=== PATIENT | female | born 1965 | race Caucasian/White ===

== ENCOUNTER 2017-03-27 08:04 | Emergency (ER) | payer BC ==
[2017-03-27 08:26] VITALS: BP 134/95
[2017-03-27] MEDS ORDERED: Ondansetron ODT TAB* 4 MG PO ONE (08:28)
--- NOTE | 2017-03-27 08:40 | UC ---
Ear Complaint HPI - HPI Summary HPI Summary: right ear pain x 1 day + dizziness , nausea / vomiting, + nasal congestion, no cough , no abdominal pain , no diarrhea , no urinary sx - History of Current Complaint Chief Complaint: UCEar Stated Complaint: EAR PAIN/NAUSEA Time Seen by Provider: 03/27/17 08:28 Hx Obtained From: Patient Hx Last Menstrual Period: HAD UTERINE ABLATION NO PERIOD SINCE 6 YRS AGO ?: No Onset/Duration: Gradual Onset, Lasting Days - 1, Still Present Severity Initially: Moderate Severity Currently: Moderate Aggravating Factors: Nothing Alleviating Factors: Nothing Associated Signs/Symptoms: Positive: URI Symptoms. Negative: Discharge, Hearing Loss, Foreign Body Sensation, Trauma to Ear, Swelling @ - Allergies/Home Medications Allergies/Adverse Reactions: Allergies Allergy/AdvReac Type Severity Reaction Status Date / Time No Known Allergies Allergy Verified 03/27/17 08:14 Home Medications: Home Medications Linaclotide [Linzess] 1 cap DAILY 03/27/17 [History Confirmed 03/27/17] Polyethylene Glycol 3350* [Miralax*] 1 chiquita DAILY 03/27/17 [History Confirmed 04/07] PMH/Surg Hx/FS Hx/Imm Hx Previously Healthy: Yes - Surgical History Surgical History: Yes Surgery Procedure, Year, and Place: Ablation - Family History Known Family History: Negative: Diabetes - Social History Alcohol Use: Rare Substance Use Type: None Smoking Status (MU): Heavy Every Day Tobacco Smoker Type: Cigarettes Amount Used/How Often: HALF PK PER DAY Length of Time of Smoking/Using Tobacco: 14.5 YRS Have You Smoked in the Last Year: Yes Household Exposure Type: Cigarettes - Immunization History Most Recent Influenza Vaccination: 2016 Most Recent Tetanus Shot: UTD Most Recent Pneumonia Vaccination: N/A Review of Systems Constitutional: Negative Skin: Negative Eyes: Negative ENT: Ear Ache, Nasal Discharge Respiratory: Negative Cardiovascular: Negative Gastrointestinal: Negative Genitourinary: Negative Neurological: Weakness All Other Systems Reviewed And Are Negative: Yes Physical Exam Triage Information Reviewed: Yes Appearance: Well-Appearing, Well-Nourished, Pain Distress Vital Signs: Initial Vital Signs Temp 97.9 F 03/27/17 08:17 Pulse 71 03/27/17 08:17 Resp 20 03/27/17 08:17 BP 134/95 03/27/17 08:17 Pulse Ox 100 03/27/17 08:17 Vital Signs Reviewed: Yes Eyes: Positive: Conjunctiva Clear ENT: Positive: Normal ENT inspection, Hearing grossly normal, Pharynx normal, TMs normal, TM bulging - right ear Neck: Positive: Supple, Nontender, No Lymphadenopathy Respiratory Exam: Normal Respiratory: Positive: Chest non-tender, Lungs clear, Normal breath sounds, No respiratory distress Cardiovascular: Positive: RRR, No Murmur, Pulses Normal Abdomen Description: Positive: Nontender, No Organomegaly, Soft Bowel Sounds: Positive: Present Neurological: Positive: Alert Psychological Exam: Normal Skin Exam: Normal UC Physical Exam Vital Signs On Initial Exam: Initial Vitals Temp Pulse Resp BP Pulse Ox 97.9 F 71 20 134/95 100 03/27/17 08:17 03/27/17 08:17 03/27/17 08:17 03/27/17 08:17 03/27/17 08:17 - Neurological Exam Neurological: Sensory/Motor Intact, Alert, Oriented to Person Place, Time, CN Intact II-III, Reflexes Intact, Normal Gait, Speech Normal Ear Complaint Course/Dx - Differential Dx/Diagnosis Provider Diagnoses: vertigo. right ear pain Discharge - Discharge Plan Condition: Stable Disposition: HOME Prescriptions: Fluticasone NASAL SPRAY 50MCG* [Flonase NASAL SPRAY 50MCG*] 2 spray BOTH NARES DAILY #1 btl Meclizine TAB* [Antivert 12.5 TAB*] 25 mg PO TID PRN #15 tab PRN Reason: Dizziness Patient Education Materials: Earache (ED), Vertigo (ED) Referrals: Tara GREWAL,Sharon [Primary Care Provider] - 5 Days
== END 2017-03-27 09:01 | disposition home or self-care (01) ==
LOC: UCCORT 08:04
DX: R42 Dizziness and giddiness (principal); H92.01 Otalgia, right ear; F17.210 Nicotine dependence, cigarettes, uncomplicated
CPT/HCPCS: 99212; A9270-GY; G0463

== ENCOUNTER 2017-11-19 09:26 | Emergency (ER) | payer BC ==
[2017-11-19 10:29] VITALS: BP 149/97
--- NOTE | 2017-11-19 10:59 | UC ---
Ear Complaint HPI - HPI Summary HPI Summary: 52 yo female with recent URI presents with right otalgia x 3 days dizziness nausea no vomting no f/c no cp or sob no headache no palpitations - History of Current Complaint Chief Complaint: UCEar Stated Complaint: EAR COMPLAINT Time Seen by Provider: 11/19/17 10:51 Hx Obtained From: Patient Hx Last Menstrual Period: ~2005 Onset/Duration: Gradual Onset, Lasting Days Severity Initially: Moderate Severity Currently: Mild Pain Intensity: 3 Pain Scale Used: 0-10 Numeric Associated Signs/Symptoms: Positive: Hearing Loss, URI Symptoms - Allergies/Home Medications Allergies/Adverse Reactions: Allergies Allergy/AdvReac Type Severity Reaction Status Date / Time No Known Allergies Allergy Verified 11/19/17 10:19 PMH/Surg Hx/FS Hx/Imm Hx Previously Healthy: Yes Respiratory History: Asthma Psychological History: Depression - Surgical History Surgical History: Yes Surgery Procedure, Year, and Place: Uterine ablation - Family History Known Family History: Positive: Hypertension Negative: Diabetes - Social History Alcohol Use: Rare Substance Use Type: None Smoking Status (MU): Heavy Every Day Tobacco Smoker Type: Cigarettes Amount Used/How Often: HALF PK PER DAY Length of Time of Smoking/Using Tobacco: 14.5 YRS Have You Smoked in the Last Year: Yes Household Exposure Type: Cigarettes - Immunization History Most Recent Influenza Vaccination: 2016 Most Recent Tetanus Shot: UTD Most Recent Pneumonia Vaccination: N/A Review of Systems Constitutional: Negative Skin: Negative Eyes: Negative ENT: Ear Ache, Nasal Discharge Respiratory: Negative Cardiovascular: Negative Gastrointestinal: Negative Genitourinary: Negative Motor: Negative Neurovascular: Negative Musculoskeletal: Negative Neurological: Negative Psychological: Negative Is Patient Immunocompromised?: No All Other Systems Reviewed And Are Negative: Yes Physical Exam Triage Information Reviewed: Yes Appearance: Well-Appearing, No Pain Distress, Well-Nourished Vital Signs: Initial Vital Signs Temp 98.5 F 11/19/17 10:23 Pulse 80 11/19/17 10:23 Resp 12 11/19/17 10:23 BP 149/97 11/19/17 10:23 Pulse Ox 99 11/19/17 10:23 Eyes: Positive: Conjunctiva Clear ENT: Positive: Nasal congestion, TM bulging, TM red - right. Negative: Hearing grossly normal Neck: Positive: Supple Respiratory: Positive: Lungs clear, Normal breath sounds, No respiratory distress Cardiovascular: Positive: RRR, No Murmur Musculoskeletal: Positive: ROM Intact, No Edema Neurological: Positive: Alert Psychological Exam: Normal Skin Exam: Normal Ear Complaint Course/Dx - Differential Dx/Diagnosis Provider Diagnoses: right otitis media. dizziness Discharge - Discharge Plan Condition: Stable Disposition: HOME Prescriptions: Amoxicillin/Clavulanate TAB* [Augmentin TAB 875*] 875 mg PO BID #20 tab Meclizine TAB* [Antivert TAB*] 25 mg PO TID PRN #15 tab PRN Reason: Dizziness Patient Education Materials: Ear Infection (ED), Dizziness (ED) Referrals: Negar Carmona MD [Primary Care Provider] - 4 Days (if not better) Additional Instructions: recheck for new or worsening symptoms
== END 2017-11-19 11:07 | disposition home or self-care (01) ==
LOC: UCCORT 09:26
DX: H66.91 Otitis media, unspecified, right ear (principal); R42 Dizziness and giddiness; F17.210 Nicotine dependence, cigarettes, uncomplicated
CPT/HCPCS: 99212; G0463

== ENCOUNTER 2018-04-09 13:30 | Emergency (ER) | payer BC ==
[2018-04-09 14:05] VITALS: BP 111/82
--- NOTE | 2018-04-09 14:14 | UC ---
Throat Pain/Nasal Gilbert HPI - HPI Summary HPI Summary: cough x 3 days nasal congestion , pnd , sinus pain and pressure no fever, no chills - History of Current Complaint Chief Complaint: UCRespiratory Stated Complaint: COUGH Time Seen by Provider: 04/09/18 14:05 Hx Obtained From: Patient Hx Last Menstrual Period: ~2005 Onset/Duration: Gradual Onset, Lasting Days - 3, Still Present Severity: Moderate Pain Intensity: 0 Cough: Nonproductive Associated Signs & Symptoms: Positive: Sinus Discomfort, Nasal Discharge. Negative: Dysphagia, FB Sensation, Drooling, Wheezing, Hoarseness, Fever, Vomiting, Rash - Allergies/Home Medications Allergies/Adverse Reactions: Allergies Allergy/AdvReac Type Severity Reaction Status Date / Time No Known Allergies Allergy Verified 04/09/18 14:01 PMH/Surg Hx/FS Hx/Imm Hx Cardiovascular History: Hypertension Respiratory History: Asthma - Surgical History Surgical History: Yes Surgery Procedure, Year, and Place: Uterine ablation - Family History Known Family History: Positive: Hypertension Negative: Diabetes - Social History Alcohol Use: Occasionally Substance Use Type: None Smoking Status (MU): Heavy Every Day Tobacco Smoker Type: Cigarettes Amount Used/How Often: HALF PK PER DAY Length of Time of Smoking/Using Tobacco: 14.5 YRS Have You Smoked in the Last Year: Yes Household Exposure Type: Cigarettes - Immunization History Most Recent Influenza Vaccination: 2016 Most Recent Tetanus Shot: UTD Most Recent Pneumonia Vaccination: N/A Review of Systems Constitutional: Negative Skin: Negative Eyes: Negative ENT: Sore Throat, Nasal Discharge, Sinus Congestion Respiratory: Cough Cardiovascular: Negative Is Patient Immunocompromised?: No All Other Systems Reviewed And Are Negative: Yes Physical Exam Triage Information Reviewed: Yes Appearance: Well-Appearing, No Pain Distress, Well-Nourished Vital Signs: Initial Vital Signs Temp 98 F 04/09/18 14:00 Pulse 90 04/09/18 14:00 Resp 16 04/09/18 14:00 BP 111/82 04/09/18 14:00 Pulse Ox 98 04/09/18 14:00 Vital Signs Reviewed: Yes Eyes: Positive: Conjunctiva Clear ENT: Positive: Normal ENT inspection, Hearing grossly normal, Pharynx normal, Nasal drainage, TMs normal. Negative: Sinus tenderness Neck: Positive: Supple, Nontender, No Lymphadenopathy Respiratory: Positive: Chest non-tender, Lungs clear, Normal breath sounds Cardiovascular: Positive: RRR, No Murmur, Pulses Normal Skin Exam: Normal Throat Pain/Nasal Course/Dx - Differential Dx/Diagnosis Provider Diagnoses: uri Discharge - Sign-Out/Discharge Documenting (check all that apply): Discharge/Admit/Transfer - Discharge Plan Condition: Stable Disposition: HOME Prescriptions: Fluticasone NASAL SPRAY 50MCG* [Flonase NASAL SPRAY 50MCG*] 2 spray BOTH NARES DAILY #1 btl Patient Education Materials: Upper Respiratory Infection (DC) Referrals: Negar Carmona MD [Primary Care Provider] - If Needed Additional Instructions: viral illness, no need for antibiotics cont. with rest, increase fluid use Flonase daily may take OTC Mucinex D - Billing Disposition and Condition Condition: STABLE Disposition: Home
== END 2018-04-09 14:22 | disposition home or self-care (01) ==
LOC: UCCORT 13:30
DX: J06.9 Acute upper respiratory infection, unspecified (principal); I10 Essential (primary) hypertension; J45.909 Unspecified asthma, uncomplicated; F17.210 Nicotine dependence, cigarettes, uncomplicated
CPT/HCPCS: 99212; G0463